=== PATIENT | male | born 1970 | race Caucasian/White ===

== ENCOUNTER 2016-10-16 23:50 | Observation (INO) | payer BC ==
--- NOTE | ~2016-10-16 | HP ---
History And Physical [place] [id number] [facility] [place]. [address] NAME: SAMIR JORDAN : 70 STATUS : ADM Bailey PAT#: [id number] AGE: 45 ADM/REG DATE : 10/16/16 MR#: [id number] REPORT SERV DATE: 10/17/16 DICTATED BY: NOELLE HERNANDEZ DATE: 10/17/16 REPORT STATUS : Draft TRANSCRIBED BY: MODL DATE: 10/17/16 DATE OF ADMISSION: 10/16/2016 CHIEF COMPLAINT: Chest pain. HISTORY OF PRESENT ILLNESS: This is a very pleasant 45-year-old male with no history of coronary artery disease and only cardiovascular risk factor of tobacco use who states a couple of weeks' history of chest "tightness." He describes it as "uncomfortable and tight" occurring mostly to the left side of his chest, 2/10 in severity, radiating through to the back. He states over the last few days, it seems to have worsened where he "couldn't get a deep breath" and he has also noticed some left arm tingling and aching. He came to our emergency department for further evaluation around 10 p.m. last night and was administered a 1-inch nitroglycerin paste, which did not do anything for the tightness but gave him a headache, so it was discontinued. He continues to have some of this tightness currently. The patient has a history of a nuclear stress test in 2009 where he achieved a Sukhi stage 4, which was low risk. He denies personal history for [place], CVA, PE, or DVT. He does have a history of former drug abuse with methamphetamines and has been clean for 14 months as well as sober from alcohol for 14 months after completing an [id number] rehabilitation program for many months last year. He is back working but does not get much exercise and reports a poor diet. He also drinks a lot of caffeine with an energy drink every evening and three large coffees daily. He reports some dyspnea on exertion noted over the last couple of months but denies PND, orthopnea, or lower extremity edema. He denies significant palpitations or any presyncopal events. MEDICAL HISTORY: 1. GERD. 2. Seasonal allergies. 3. Nuclear stress test in 2009 with Sukhi stage 4, which was low risk. 4. Depression. 5. Tobacco. 6. Former drug and alcohol abuse. SURGICAL HISTORY: Tonsillectomy and adenoidectomy at age 12. HOME MEDICATIONS: Wellbutrin XL 300 every morning, Claritin 10 every morning, Prilosec 40 every morning. ALLERGIES: NO KNOWN DRUG ALLERGIES. SOCIAL HISTORY: The patient is , with two children. 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 He smokes one pack per day and has been doing so since the age of 12. No alcohol or methamphetamines over the last 14 months. Caffeine consumption as above. FAMILY HISTORY: Negative for premature cardiovascular disease among his first-degree History And Physical [address] [id number] NAME: SAMIR JORDAN : 70 STATUS : ADM Bailey PAT#: [id number] AGE: 45 ADM/REG DATE : 10/16/16 MR#: [id number] REPORT SERV DATE: 10/17/16 DICTATED BY: NOELLE HERNANDEZ DATE: 10/17/16 REPORT STATUS : Draft TRANSCRIBED BY: DRE DATE: 10/17/16 relatives. REVIEW OF SYSTEMS: Negative except as indicated above. PHYSICAL EXAMINATION: VITAL SIGNS: Blood pressure 139/78, heart rate 84, temperature 97.8, pulse oximetry 97% on room air, BMI 28.1. GENERAL: Well developed, well nourished, in no acute distress HEENT: Anicteric. Normal EOM. Head normocephalic. PERRLA, no xanthelasma. NECK: Supple. No JVD. Carotids normal without bruits. LUNGS: Clear to auscultation bilaterally anterior and posterior. Respirations even and unlabored. CARDIAC: S1, S2 regular rate and rhythm. No murmurs, rubs, or gallops. No chest wall tenderness. ABDOMEN: Normal bowel sounds. Soft and nontender to palpation. No masses or organomegaly. EXTREMITIES: No peripheral edema. DP/PT and radial pulses palpable bilaterally. No clubbing or cyanosis. SKIN: Warm and dry. Normal turgor. No pallor or cyanosis. MUSCULOSKELETAL: Moving all extremities x4. Normal muscle strength. NEURO/PSYCH: Alert and oriented with appropriate affect. LABORATORY DATA: White blood count 7.7, hemoglobin 17.0, hematocrit 48.4. Sodium 140, potassium 4.2, BUN 12, creatinine 1.0. Troponin 0.05 and then less than 0.02. Chest x-ray shows no acute cardiopulmonary processes. EKG interpreted by myself indicates normal sinus rhythm with a right bundle branch block. This is new when compared to EKG on record from 2009. ASSESSMENT AND PLAN: 1. Substernal chest pain in this 45-year-old male with cardiovascular risk factors of tobacco use. There are some atypical features to the pain. He has been observed overnight in the chest pain observation unit and is negative for acute coronary syndrome. Of note, new right bundle branch block on EKG. Recommend proceeding with a nuclear stress test today to identify any ischemia. If this is low risk with no indication of ischemia, we will plan to discharge him home to follow up with his primary care physician. He has an appointment set up as a new patient with Dr. Juan Ochoa office to occur next month. We will try to move this up to the next one to two weeks as hospital followup. 2. Dyspnea on exertion. This may be related to the patient's recent sedentary lifestyle. He does report a history of early COPD, there is no evidence of this on chest x-ray. No wheezing on exam. Nuclear stress test planned as above. 3. Continued tobacco use. The patient likely will have a hard time quitting smoking secondary to having just quit alcohol and methamphetamine use. Encouraged eventual cessation. 4. Former drug abuse, now sober for 14 months. I have also instructed the patient to attempt to decrease caffeine intake by first eliminating energy drinks and then limiting coffee consumption. I have also advised on making walking a part of his History And Physical [address] [id number] NAME: SAMIR JORDAN : 70 STATUS : ADM Bailey PAT#: [id number] AGE: 45 ADM/REG DATE : 10/16/16 MR#: [id number] REPORT SERV DATE: 10/17/16 DICTATED BY: NOELLE HERNANDEZ DATE: 10/17/16 REPORT STATUS : Draft TRANSCRIBED BY: DRE DATE: 10/17/16 normal regimen as well as removing snack foods and increasing vegetable and fruit intake. DBT/DRE Noelle Hernandez NP / [id number] CC: Shyann Soares, MSN, STATE ARCHIVIST-BC Juan Ochoa M.D.
[2016-10-16 22:53] LABS: BASOPHILS 0.5 %; BASOPHILS ABSOLUTE 0.04 10/3/uL (0.0-0.16); EOSINOPHILS 2.2 %; EOSINOPHILS ABSOLUTE 0.17 10/3/uL (0.0-0.53); HEMATOCRIT 48.4 % (40.0-51.0); IMMATURE GRANULOCYTES 0.3 %; IMMATURE GRANULOCYTES ABSOLUTE 0.02 10/3/uL (0.0-0.11); LYMPHOCYTES 33.9 %; MEAN CORPUS HGB CONC 35.1 g/dL (32.0-36.0); MEAN CORPUSCULAR HEMOGLOB 29.7 pg (26.0-34.0); MEAN PLATELET VOLUME 9.9 fL (9.2-13.0); MONOCYTES 6.1 %; MONOCYTES ABSOLUTE 0.47 10/3/uL (0.21-1.20); NEUTROPHILS ABSOLUTE 4.38 10/3/uL (2.02-8.40); PLATELET COUNT 223 10/3/uL (150-400); RED CELL COUNT 5.73 10/6/uL (4.7-6.1); WHITE BLOOD CELLS 7.7 10/3/uL (4.5-10.5)
[2016-10-16 22:54] LABS: MANUAL DIFF NO %; MEAN CORPUSCULAR VOLUME 84.5 fL (80-100)
[2016-10-16 23:02] LABS: PARTIAL THROMBO TIME 35.1 SEC (22.5-37.2); PROTIME (NOT ORD) 13.2 SEC (12.0-14.5)
[2016-10-16 23:10] LABS: BUN (BLOOD UREA NITROGEN) 12 MG/DL (6-23); CALCIUM, SERUM 8.8 MG/DL (8.5-10.4); CHLORIDE, SERUM 104 MMOL/L (96-112); CO2 (CARBON DIOXIDE) 28 MMOL/L (24-34); CREATININE 1.04 MG/DL (0.70-1.30); GFR AFRICAN AMERICAN 100 ML/MIN (>=60); GFR NON AFRICAN AMERICAN 86 ML/MIN (>=60); GLUCOSE, SERUM 95 MG/DL (60-99); POTASSIUM, SERUM 4.2 MMOL/L (3.5-5.3); SODIUM, SERUM 140 MMOL/L (135-148)
[2016-10-16 23:12] LABS: CHEST PAIN PROFILE TAT 0 Hrs 23 Mins; TROPONIN I 0.05 NG/ML (<0.05)
[~2016-10-16 23:50] MED LIST: PRILO PO
[2016-10-17] MEDS ORDERED: WELLXL300 PO (02:00)
[2016-10-17] MEDS ORDERED: CLARIT10 PO (02:01)
[2016-10-17] MEDS ORDERED: PRILOSEC40 MG PO (02:01)
== END 2016-10-17 16:11 | disposition home or self-care (01) ==
LOC: ER 23:50 → ER/OF 23:59 → CDU1 10-17 06:07
PROVIDERS: Emergency Medicine
DX: R07.89 Other chest pain (principal); R06.00 Dyspnea, unspecified; K21.9 Gastro-esophageal reflux disease without esophagitis; J30.2 Other seasonal allergic rhinitis; F32.9 Major depressive disorder, single episode, unspecified; F17.210 Nicotine dependence, cigarettes, uncomplicated; Z87.898 Personal history of other specified conditions; Z79.899 Other long term (current) drug therapy; Z90.89 Acquired absence of other organs
CPT/HCPCS: 71010; 78452; 80048; 83735; 84484; 85025; 85610; 85730; 93005; 93017; 99285; A9270-GY; A9502; G0378